=== PATIENT | female | born 1945 | race Caucasian/White ===

== ENCOUNTER → 2018-01-06 | Outpatient (CLI) | payer MEDICARE ==
[2018-01-06 19:07] LABS: ANION GAP 8 MEQ/L (8-16); BLOOD UREA NITROGEN 19 MG/DL (7-18); CALCIUM LEVEL 8.9 MG/DL (8.8-10.2); CARBON DIOXIDE LEVEL 26 MEQ/L (21-32); CHLORIDE LEVEL 104 MEQ/L (98-107); CREATININE FOR GFR 0.82 MG/DL (0.55-1.30); GLOMERULAR FILTRATION RATE > 60.0 (>39); GLUCOSE, FASTING 218 MG/DL (70-100); POTASSIUM SERUM 4.6 MEQ/L (3.5-5.1); SODIUM LEVEL 138 MEQ/L (136-145)
== END ==
LOC: M SMT 15:15
DX: R31.0 Gross hematuria (principal)
CPT/HCPCS: 80048

== ENCOUNTER → 2018-01-29 | Outpatient (REF) | payer MEDICARE ==
[2018-01-29 14:10] LABS: APPEARANCE, URINE CLEAR (CLEAR); BACTERIA, URINE AUTO NEGATIVE (NEGATIVE); BILIRUBIN, URINE AUTO NEGATIVE (NEGATIVE); BLOOD, URINE BLOOD NEGATIVE (NEGATIVE); COLOR, URINE STRAW (YELLOW); GLUCOSE, URINE (UA) AUTO 3+ mg/dL (NEGATIVE); KETONE, URINE AUTO NEGATIVE (NEGATIVE); LEUKOCYTE ESTERASE, URINE AUTO NEGATIVE (NEGATIVE); MUCUS, URINE SMALL (NEGATIVE); NITRITE, URINE AUTO NEGATIVE (NEGATIVE); PROTEIN, URINE AUTO NEGATIVE (NEGATIVE); RBC, URINE AUTO 1 /HPF (0-3); SQUAMOUS EPITHELIAL CELL UR AU 0 /HPF (0-6); UROBILINOGEN, URINE AUTO 0.2 mg/dL (0.0-2.0); WBC, URINE AUTO 1 /HPF (0-3)
== END ==
LOC: M SMT 13:22
DX: D49.4 Neoplasm of unspecified behavior of bladder (principal); R31.0 Gross hematuria
CPT/HCPCS: 81001

== ENCOUNTER 2018-02-27 08:48 | Day surgery (SDC) | payer MEDICARE ==
[~2018-02-27] VITALS: Ht 172.7 cm; Wt 88.0 kg
[~2018-02-27 08:48] MED LIST: COZA1TAB PO; IBUP-1022; JANU50TA25 PO; LIDOCAINE 2% INJ 100 MG/5 ML SDV (FOR ANES.) As Ordered ONE; MIDAZOLAM INJ 2 MG/2 ML VIAL (J2250) As Ordered ONE; MULT1TAB10 PO; ONDANSETRON 4MG/2ML VIAL (J2405) As Ordered ONE; PROPOFOL 200 MG/20 ML VIAL As Ordered ONE; TURM500T PO; dexameTHASONE 4 MG/ML 1ML VIAL (J1100) As Ordered ONE; fentaNYL 100 MCG/2 ML INJECTION (J3010) As Ordered ONE
[2018-02-27] MEDS ORDERED: LR 1,000 ML IV SCH (09:00)
[2018-02-27] MEDS ORDERED: mitoMYcin 40MG VIAL (J9280 PER 5MG) INTRAVESIC ONE (10:30)
[2018-02-27] MEDS ORDERED: CONRAY-60 60% 50ML VIAL (Q9961) As Ordered ONE (11:25)
[2018-02-27] MEDS ORDERED: ROCURONIUM BROMIDE 50 MG/5 ML VIAL As Ordered ONE (11:26)
[2018-02-27] MEDS ORDERED: HumaLOG INSULIN (NovoLOG) PER UNIT As Ordered ONE (11:38)
[2018-02-27] MEDS ORDERED: HumaLOG INSULIN (NovoLOG) PER UNIT SC ONE (12:00)
[2018-02-27] MEDS ORDERED: ePHEDrine SULFATE 25 MG/5 ML(5MG/ML) SYRINGE As Ordered ONE (12:27)
[2018-02-27] MEDS ORDERED: GLYCOPYRROLATE INJ 0.2 MG/ML 2 ML VIAL As Ordered ONE (12:30)
[2018-02-27] MEDS ORDERED: NEOSTIGMINE 10 MG/10 ML VIAL (J2710) As Ordered ONE (12:30)
[2018-02-27] MEDS ORDERED: HYDROmorphone HCL 2 MG/ML 1ML VIAL (J1170) As Ordered ONE (12:31)
[2018-02-27] MEDS ORDERED: ONDANSETRON 4MG/2ML VIAL (J2405) As Ordered ONE (13:06)
[2018-02-27] MEDS ORDERED: ACETAMINOPHEN TAB 650MG DOSE (2X325MG) PO PRN (13:15)
[2018-02-27] MEDS ORDERED: fentaNYL 100 MCG/2 ML INJECTION (J3010) IV PRN (13:15)
[2018-02-27] MEDS ORDERED: PERCOCET 5MG/325MG TAB PO PRN (13:15)
[2018-02-27] MEDS ORDERED: ONDANSETRON 4MG/2ML VIAL (J2405) IV PRN (13:15)
[2018-02-27] MEDS ORDERED: oxyBUTYnin 5 MG TAB PO PRN (14:45)
--- NOTE | 2018-02-27 14:55 | REP ---
RETROGRADE PYELOGRAM: FIVE VIEWS. HISTORY: Procedure. 13 seconds of fluoroscopy time was utilized. FINDINGS: A sequence of five last image hold fluoroscopically obtained spot radiographs of the abdomen document ureteral cannulation, contrast injection, and double pigtail stent placement. No laterality markers are visible. Electronically Signed by Shayan Brand MD 02/27/2018 04:17 P
[2018-02-27 16:10] VITALS: BP 172/77
--- NOTE | 2018-03-02 12:26 | RO ---
DATE OF PROCEDURE: 02/27/2018 PREPROCEDURE DIAGNOSIS: Bladder tumors. POSTPROCEDURE DIAGNOSIS: Bladder tumors. PROCEDURE: Cystoscopy, transurethral resection of bladder tumors (greater than 5 cm, right retrograde pyelogram and intraoperative interpretation of images, right ureteral stent placement, and examination under anesthesia. SURGEON: Manpreet Pillai MD AIR GRINDER: None. ANESTHESIA: General. OPERATIVE INDICATIONS: This is a 72-year-old female who was found to have a few papillary tumors near her right trigone on office cystoscopy. She is brought to the operating room today for the above listed procedure. DESCRIPTION OF PROCEDURE: The patient was brought to the operating room and general anesthesia was induced. Prophylactic antibiotics were infused. She was then placed in the dorsal lithotomy position and prepped and draped in the usual sterile fashion. A bimanual vaginal examination under anesthesia was then performed. The bladder was freely mobile. There were no palpable bladder masses. At this point a resectoscope was inserted through urethral meatus and advanced into the bladder using a digital opturator. The bladder was then thoroughly examined and the only abnormalities seen were three or four papillary tumors on the right wall over the right trigone. All of these tumors were then resected using a loop. I made sure to resect through the muscle layer so that pathology would have that available to analyze. All the bladder tumor specimens were then removed using the [employer] evacuator. I did have to resect over the right ureteral orifice. Because of this a decision was made to place a stent. At this point, an open-ended ureteral catheter was advanced into the ureteral orifice and retrograde pyelogram performed. It was negative for filling defects. There was no hydronephrosis. I then advanced a wire up the right collecting system and then removed the ureteral catheter. I then utilized the wire to advance a #6-Czech x 22-32 cm JJ ureteral stent up to the right collecting system. The wire was then removed and there were adequate coils of the stent in the right renal pelvis and in the bladder. At this point, after confirming all the tumors had been removed from the bladder, an #18-Czech Salas catheter was inserted into the bladder. The balloon was then filled with 10 mL of sterile water. The catheter was then connected to gravity drainage. This marked the conclusion of the procedure. The patient was then taken out of taken out of the dorsal lithotomy position, awakened from anesthesia and transported to the recovery room in stable condition. ESTIMATED BLOOD LOSS: 5 mL. COMPLICATIONS: None. SPECIMENS: Bladder tumors. PLAN: The patient will followup in the clinic next week for catheter removal. I will likely end up calling her to discuss her pathology results and future treatment. She will also need to have her stent removed in approximately 3 to 4 weeks. MARKD
== END 2018-02-27 16:15 | disposition home or self-care (01) ==
LOC: M SDC 08:48
PROVIDERS: ATTEND Urology
DX: C67.9 Malignant neoplasm of bladder, unspecified (principal); R31.0 Gross hematuria; E11.9 Type 2 diabetes mellitus without complications; D35.1 Benign neoplasm of parathyroid gland; K63.5 Polyp of colon; R80.9 Proteinuria, unspecified; M50.30 Other cervical disc degeneration, unspecified cervical region; F41.9 Anxiety disorder, unspecified; G47.33 Obstructive sleep apnea (adult) (pediatric); Z79.899 Other long term (current) drug therapy; Z98.51 Tubal ligation status; Z78.0 Asymptomatic menopausal state
CPT/HCPCS: 52240; 52332; 74420; 88307; C1769; C2617; J0690; J1100; J1170; J2250; J2405; J2710; J3010; Q9961

== ENCOUNTER → 2018-05-14 | Outpatient (REF) | payer MEDICARE ==
[~2018-05-14] MED LIST changes: -LIDOCAINE 2% INJ 100 MG/5 ML SDV (FOR ANES.) As Ordered ONE; -MIDAZOLAM INJ 2 MG/2 ML VIAL (J2250) As Ordered ONE; -ONDANSETRON 4MG/2ML VIAL (J2405) As Ordered ONE; -PROPOFOL 200 MG/20 ML VIAL As Ordered ONE; -dexameTHASONE 4 MG/ML 1ML VIAL (J1100) As Ordered ONE; -fentaNYL 100 MCG/2 ML INJECTION (J3010) As Ordered ONE
[2018-05-14 19:39] LABS: APPEARANCE, URINE CLEAR (CLEAR); BACTERIA, URINE AUTO NEGATIVE (NEGATIVE); BILIRUBIN, URINE AUTO NEGATIVE (NEGATIVE); BLOOD, URINE BLOOD NEGATIVE (NEGATIVE); COLOR, URINE YELLOW (YELLOW); GLUCOSE, URINE (UA) AUTO 3+ mg/dL (NEGATIVE); KETONE, URINE AUTO NEGATIVE (NEGATIVE); LEUKOCYTE ESTERASE, URINE AUTO 3+ (NEGATIVE); MUCUS, URINE SMALL (NEGATIVE); NITRITE, URINE AUTO NEGATIVE (NEGATIVE); PROTEIN, URINE AUTO NEGATIVE (NEGATIVE); RBC, URINE AUTO 1 /HPF (0-3); SPECIFIC GRAVITY URINE AUTO 1.008 (1.002-1.035); SQUAMOUS EPITHELIAL CELL UR AU 0 /HPF (0-6); UROBILINOGEN, URINE AUTO 0.2 mg/dL (0.0-2.0); WBC, URINE AUTO 104 /HPF (0-3)
== END ==
LOC: M SMT 17:23
PROVIDERS: ATTEND Nurse Practitioner Family
DX: C67.9 Malignant neoplasm of bladder, unspecified (principal)
CPT/HCPCS: 51701; 81001; 87088; 87186; G0463

== ENCOUNTER → 2018-08-10 | Outpatient (REF) | payer MEDICARE | LOC: M SMT 17:26 | PROVIDERS: ATTEND Urology | DX: C67.9 Malignant neoplasm of bladder, unspecified (principal) ==

== ENCOUNTER → 2018-11-04 | Outpatient (REF) | payer MEDICARE ==
[2018-11-04 18:51] LABS: APPEARANCE, URINE CLEAR (CLEAR); BACTERIA, URINE AUTO NEGATIVE (NEGATIVE); BILIRUBIN, URINE AUTO NEGATIVE (NEGATIVE); BLOOD, URINE BLOOD NEGATIVE (NEGATIVE); COLOR, URINE STRAW (YELLOW); GLUCOSE, URINE (UA) AUTO NEGATIVE (NEGATIVE); KETONE, URINE AUTO NEGATIVE (NEGATIVE); LEUKOCYTE ESTERASE, URINE AUTO NEGATIVE (NEGATIVE); MUCUS, URINE SMALL (NEGATIVE); NITRITE, URINE AUTO NEGATIVE (NEGATIVE); PROTEIN, URINE AUTO NEGATIVE (NEGATIVE); RBC, URINE AUTO 0 /HPF (0-3); SPECIFIC GRAVITY URINE AUTO 1.003 (1.002-1.035); SQUAMOUS EPITHELIAL CELL UR AU 0 /HPF (0-6); UROBILINOGEN, URINE AUTO 0.2 mg/dL (0.0-2.0); WBC, URINE AUTO 3 /HPF (0-3)
== END ==
LOC: M SMT 17:18
PROVIDERS: ATTEND Urology
DX: N39.0 Urinary tract infection, site not specified (principal)

== ENCOUNTER → 2018-12-28 | Outpatient (REF) | payer MEDICARE | LOC: M SMT 16:49 | PROVIDERS: ATTEND Urology | DX: C67.9 Malignant neoplasm of bladder, unspecified (principal) ==

== ENCOUNTER → 2019-03-29 | Outpatient (REF) | payer MEDICARE | LOC: M SMT 17:21 | PROVIDERS: ATTEND Urology | DX: C67.9 Malignant neoplasm of bladder, unspecified (principal) ==

== ENCOUNTER → 2019-07-05 | Outpatient (REF) | payer MEDICARE | LOC: M SMT 16:46 | PROVIDERS: ATTEND Urology | DX: C67.9 Malignant neoplasm of bladder, unspecified (principal) ==

== ENCOUNTER → 2019-10-04 | Outpatient (REF) | payer MEDICARE | LOC: M SMT 06:59 | PROVIDERS: ATTEND Urology | DX: C67.9 Malignant neoplasm of bladder, unspecified (principal) ==

== ENCOUNTER → 2020-01-17 | Outpatient (REF) | payer MEDICARE | LOC: M SMT 13:19 | PROVIDERS: ATTEND Urology | DX: C67.9 Malignant neoplasm of bladder, unspecified (principal) ==

== ENCOUNTER → 2020-04-17 | Outpatient (REF) | payer MEDICARE | LOC: M SMT 19:06 | PROVIDERS: ATTEND Urology | DX: C67.9 Malignant neoplasm of bladder, unspecified (principal) ==

== ENCOUNTER → 2020-07-17 | Outpatient (REF) | payer MEDICARE | LOC: M SMT 17:01 | PROVIDERS: ATTEND Urology | DX: C67.9 Malignant neoplasm of bladder, unspecified (principal) ==

== ENCOUNTER → 2020-10-30 | Outpatient (REF) | payer MEDICARE | LOC: M SMT 13:41 | PROVIDERS: ATTEND Urology | DX: C67.9 Malignant neoplasm of bladder, unspecified (principal) ==

== ENCOUNTER → 2021-01-30 | Outpatient (REF) | payer MEDICARE | LOC: M SMT 13:26 | PROVIDERS: ATTEND Urology | DX: C67.9 Malignant neoplasm of bladder, unspecified (principal) | CPT/HCPCS: 52000; 88108; G0463 ==

== ENCOUNTER → 2021-08-07 | Outpatient (REF) | payer MEDICARE, OTHER | LOC: M SMT 13:02 | PROVIDERS: ATTEND Urology | DX: C67.9 Malignant neoplasm of bladder, unspecified (principal) ==

== ENCOUNTER → 2022-02-11 | Outpatient (REF) | payer MEDICARE, OTHER | LOC: M SMT 13:06 | PROVIDERS: ATTEND Urology | DX: C67.9 Malignant neoplasm of bladder, unspecified (principal) ==

== ENCOUNTER → 2022-08-12 | Outpatient (REF) | payer OTHER, MEDICARE | LOC: M SMT 12:59 | PROVIDERS: ATTEND Urology | DX: C67.9 Malignant neoplasm of bladder, unspecified (principal) ==

== ENCOUNTER → 2023-03-10 | Outpatient (REF) | payer OTHER, MEDICARE ==
[~2023-03-10] MED LIST changes: -COZA1TAB PO; +LOSA-527 PO
== END ==
LOC: M SMT 09:50
PROVIDERS: ATTEND Urology
DX: C67.9 Malignant neoplasm of bladder, unspecified (principal)

== ENCOUNTER 2023-07-23 03:51 | Inpatient (IN) | payer OTHER, MEDICARE ==
[~2023-07-23] VITALS: Ht 172.7 cm; Wt 85.0 kg
[2023-07-24] VITALS (27 sets, daily range): BP systolic 83–128; BP diastolic 46–67; TEMP 97.9–98.7; O2SAT 94–99
[2023-07-24] MEDS ORDERED: VENTAER INH (09:35)
[2023-07-24] MEDS ORDERED: FLOM0.4C39 PO (09:35)
[2023-07-24] MEDS ORDERED: RA T500C2 PO (09:35)
[2023-07-24] MEDS ORDERED: PERCOCET PO (09:35)
[2023-07-24] MEDS ORDERED: MULTTAB61 PO (09:35)
[2023-07-24] MEDS ORDERED: ARIC1TAB PO (09:35)
[2023-07-24] MEDS ORDERED: HOME MED LIST COMPLETE! XX SCH (09:35)
[2023-07-24] MEDS ORDERED: VENL75CA47 PO (09:35)
[2023-07-24] MEDS ORDERED: NAPR220C23 PO (09:35)
[2023-07-24] MEDS ORDERED: SEMA1PEN2 SQ (09:35)
[2023-07-24] MEDS ORDERED: GLUCAGON INJ 1MG VIAL SC PRN (09:45)
[2023-07-24] MEDS ORDERED: GLUCOSE 4 GM CHEW PO PRN (09:45)
[2023-07-24] MEDS ORDERED: DEXTROSE 50% 50ML SYRINGE IV PRN (09:45)
[2023-07-24] MEDS: PANTOPRAZOLE 40MG VIAL IV SCH (09:49)
[2023-07-24] MEDS: LR 1,000 ML IV SCH ×2 (09:49→14:01)
[2023-07-24] MEDS: NOREPINEPHRINE 4MG IN D5 250ML 4 MG in IV 1 EA IV SCH (09:55)
[2023-07-24 10:10] LABS: ALBUMIN 2.5 G/DL (3.2-5.2); BILIRUBIN,TOTAL 0.4 MG/DL (0.3-1.2); CREATININE FOR GFR 1.19 MG/DL (0.55-1.30); GLOMERULAR FILTRATION RATE 46.9 (>39); HEMATOCRIT 30.1 % (36.0-47.0); HEMOGLOBIN 10.3 g/dl (12.0-15.5); MAGNESIUM LEVEL 1.9 MG/DL (1.8-2.4); MEAN CORPUSCULAR HEMOGLOBIN 32.9 pg (27.0-33.0); MEAN CORPUSCULAR HGB CONC 34.2 g/dl (32.0-36.5); MEAN CORPUSCULAR VOLUME 96.2 fl (80.0-96.0); PHOSPHORUS LEVEL 3.8 MG/DL (2.4-5.1); PLATELET COUNT, AUTOMATED 148 10^3/uL (150-450); POTASSIUM SERUM 3.7 MMOL/L (3.5-5.1); RED BLOOD COUNT 3.13 10^6/uL (4.00-5.40); WHITE BLOOD COUNT 19.1 10^3/uL (4.0-10.0)
[2023-07-24 10:35] LABS: APPEARANCE, URINE HAZY (CLEAR); BACTERIA, URINE AUTO 1+ (NEGATIVE); BILIRUBIN, URINE AUTO NEGATIVE (NEGATIVE); BLOOD, URINE BLOOD 1+ (NEGATIVE); COLOR, URINE YELLOW (YELLOW); GLUCOSE, URINE (UA) AUTO NEGATIVE (NEGATIVE); KETONE, URINE AUTO NEGATIVE (NEGATIVE); LEUKOCYTE ESTERASE, URINE AUTO 1+ (NEGATIVE); MUCUS, URINE SMALL (NEGATIVE); NITRITE, URINE AUTO NEGATIVE (NEGATIVE); PROTEIN, URINE AUTO 1+ mg/dL (NEGATIVE); RBC, URINE AUTO 7 /HPF (0-3); SPECIFIC GRAVITY URINE AUTO 1.027 (1.002-1.035); SQUAMOUS EPITHELIAL CELL UR AU 0 /HPF (0-6); UROBILINOGEN, URINE AUTO 0.2 mg/dL (0.0-2.0); WBC, URINE AUTO 51 /HPF (0-3)
[2023-07-24 10:36] LABS: LYMPHOCYTES 5 % (16-44); METAMYELOCYTES 9 % (0-0); MONOCYTES 2 % (0-5); NEUTROPHILS 67 % (28-66)
[2023-07-24 10:37] LABS: PLATELET ESTIMATE NORMAL (NORMAL)
[2023-07-24] MEDS: cefTRIAXone SOD 2 GM in D5W MINI-BAG PLUS 50 ML IV SCH (11:12)
[2023-07-24] MEDS: LIDOCAINE 2% JELLY 6ML SYRINGE As Ordered ONE (12:33)
[2023-07-24] MEDS: ISOVUE-300 61% 100ML VIAL As Ordered ONE (12:40)
[2023-07-24] MEDS ORDERED: oxyCODONE 5MG TAB PO PRN (12:55)
[2023-07-24] MEDS ORDERED: fentaNYL 100 MCG/2 ML INJECTION IV PRN (12:55)
[2023-07-24] MEDS ORDERED: HYDROMORPHONE HCL 0.5 MG/ 0.5 ML SYRINGE IV PRN (12:55)
[2023-07-24] MEDS: ONDANSETRON 4MG 2ML VIAL IV PRN ×2 (13:30→19:47)
[2023-07-24] MEDS ORDERED: ALBUTEROL 90 MCG/ACT 8GM HFA INHALER INH PRN (14:05)
[2023-07-24] MEDS ORDERED: PERCOCET 5MG/325MG TAB PO PRN (14:05)
[2023-07-24] MEDS: INSULIN LISPRO (NovoLOG) PER UNIT SC SCH (14:09)
[2023-07-24] MEDS: DONEPEZIL 5 MG TAB PO SCH (20:48)
[2023-07-24] MEDS: HEPARIN SOD (PORCINE) 5000UNITS/ML 1ML VIAL/SYRINGE SC SCH (21:41)
[2023-07-25] VITALS (16 sets, daily range): BP systolic 111–161; BP diastolic 55–80; TEMP 97.3–98.2; O2SAT 92–98
[2023-07-25] MEDS: ACETAMINOPHEN TAB 650MG DOSE (2X325MG) PO ONE (04:52)
[2023-07-25 04:58] LABS: HEMOGLOBIN 9.6 g/dl (12.0-15.5); MEAN CORPUSCULAR HEMOGLOBIN 32.4 pg (27.0-33.0); MEAN CORPUSCULAR HGB CONC 33.1 g/dl (32.0-36.5); PLATELET COUNT, AUTOMATED 128 10^3/uL (150-450); RED BLOOD COUNT 2.96 10^6/uL (4.00-5.40); WHITE BLOOD COUNT 14.6 10^3/uL (4.0-10.0)
[2023-07-25 05:16] LABS: ALBUMIN 2.1 G/DL (3.2-5.2); BILIRUBIN,TOTAL 0.3 MG/DL (0.3-1.2); CALCIUM LEVEL 7.1 MG/DL (8.3-10.6); CREATININE FOR GFR 0.97 MG/DL (0.55-1.30); GLOMERULAR FILTRATION RATE 59.4 (>39); MAGNESIUM LEVEL 1.9 MG/DL (1.8-2.4); PHOSPHORUS LEVEL 2.6 MG/DL (2.4-5.1); POTASSIUM SERUM 3.8 MMOL/L (3.5-5.1); TOTAL PROTEIN 4.7 G/DL (5.7-8.2)
[2023-07-25 05:30] LABS: EOSINOPHILS 1 % (0-3); LYMPHOCYTES 14 % (16-44); MONOCYTES 2 % (0-5); MYELOCYTES 1 % (0-0); NEUTROPHILS 76 % (28-66)
[2023-07-25 05:31] LABS: PLATELET ESTIMATE DECREASED (NORMAL)
[2023-07-25] MEDS ORDERED: DEXTROSE 50% 50ML SYRINGE IV PRN (07:50)
[2023-07-25] MEDS ORDERED: GLUCAGON INJ 1MG VIAL SC PRN (07:50)
[2023-07-25] MEDS ORDERED: GLUCOSE 4 GM CHEW PO PRN (07:50)
[2023-07-25] MEDS: VENLAFAXINE **XR** 75MG CAPSULE PO SCH (08:26)
[2023-07-25] MEDS: INSULIN LISPRO (NovoLOG) PER UNIT SC SCH ×2 (12:00→20:47)
[2023-07-25 14:30] LABS: PERCENT SATURATION 3.5 % (13.2-45.0)
[2023-07-25 14:33] LABS: FERRITIN 217.3 NG/ML (7.3-270.7); FOLATE 20.4 NG/ML (>5.4)
[2023-07-25] MEDS: MEROPENEM INJ 1 GM in IV 1 EA IV SCH (14:37)
[2023-07-26 03:59] VITALS: BP 122/58; TEMP 97.3; O2SAT 91
[2023-07-26 07:47] VITALS: BP 143/67; TEMP 98; O2SAT 96
[2023-07-26] MEDS: SODIUM CHLORIDE 0.9% INJ 10 ML SYR IV PRN (08:30)
[2023-07-26 08:53] LABS: BASO % 0.3 % (0.0-1.0); EOS # 0.1 10^3/uL (0.0-0.5); EOS % 1.5 % (0.0-3.0); HEMATOCRIT 29.4 % (36.0-47.0); HEMOGLOBIN 9.9 g/dl (12.0-15.5); LYMPH # 1.3 10^3/uL (1.5-5.0); LYMPH % 14.9 % (24.0-44.0); MEAN CORPUSCULAR HEMOGLOBIN 32.5 pg (27.0-33.0); MEAN CORPUSCULAR HGB CONC 33.7 g/dl (32.0-36.5); MEAN CORPUSCULAR VOLUME 96.4 fl (80.0-96.0); MONO # 0.4 10^3/uL (0.0-0.8); MONO % 4.7 % (2.0-8.0); NEUTROPHILS % 78.4 % (36.0-66.0); PLATELET COUNT, AUTOMATED 152 10^3/uL (150-450); RED BLOOD COUNT 3.05 10^6/uL (4.00-5.40); WHITE BLOOD COUNT 8.9 10^3/uL (4.0-10.0)
[2023-07-26 09:13] LABS: BLOOD UREA NITROGEN 10 MG/DL (9-23); CALCIUM LEVEL 7.4 MG/DL (8.3-10.6); CARBON DIOXIDE LEVEL 24 MMOL/L (20-31); CHLORIDE LEVEL 110 MMOL/L (98-107); CREATININE FOR GFR 0.89 MG/DL (0.55-1.30); GLOMERULAR FILTRATION RATE > 60.0 (>39); GLUCOSE, FASTING 214 MG/DL (74-106); MAGNESIUM LEVEL 1.6 MG/DL (1.8-2.4); POTASSIUM SERUM 3.9 MMOL/L (3.5-5.1); SODIUM LEVEL 141 MMOL/L (136-145)
[2023-07-26 12:29] VITALS: BP 146/62; TEMP 97.8; O2SAT 98
[2023-07-26] MEDS: SODIUM CHLORIDE 0.9% INJ 10 ML SYR IV SCH (15:26)
[2023-07-26 16:05] VITALS: BP 150/65; TEMP 97.7; O2SAT 95
[2023-07-26] MEDS: MAG SULF 1GM/100ML (MAG RUN) 1 GM in IV 1 EA IV SCH (16:36)
[2023-07-26] MEDS: LACTOBACILLUS ACIDOPHILUS CAP (BACID) PO SCH (17:55)
[2023-07-26 19:35] VITALS: BP 143/67; TEMP 98.4; O2SAT 96
[2023-07-26 23:36] VITALS: BP 120/58; TEMP 97.6; O2SAT 92
[2023-07-27 04:10] VITALS: BP 126/60; TEMP 98.7; O2SAT 93
[2023-07-27 07:02] LABS: BASO % 0.5 % (0.0-1.0); EOS # 0.1 10^3/uL (0.0-0.5); EOS % 2.1 % (0.0-3.0); HEMATOCRIT 29.1 % (36.0-47.0); HEMOGLOBIN 9.9 g/dl (12.0-15.5); LYMPH # 1.6 10^3/uL (1.5-5.0); LYMPH % 28.4 % (24.0-44.0); MEAN CORPUSCULAR HEMOGLOBIN 32.7 pg (27.0-33.0); MONO # 0.6 10^3/uL (0.0-0.8); MONO % 10.7 % (2.0-8.0); NEUTROPHILS # 3.3 10^3/uL (1.5-8.5); NEUTROPHILS % 57.1 % (36.0-66.0); PLATELET COUNT, AUTOMATED 160 10^3/uL (150-450); RED BLOOD COUNT 3.03 10^6/uL (4.00-5.40); WHITE BLOOD COUNT 5.7 10^3/uL (4.0-10.0)
[2023-07-27 07:26] LABS: BLOOD UREA NITROGEN 9 MG/DL (9-23); CALCIUM LEVEL 7.8 MG/DL (8.3-10.6); CARBON DIOXIDE LEVEL 27 MMOL/L (20-31); CHLORIDE LEVEL 107 MMOL/L (98-107); CREATININE FOR GFR 0.84 MG/DL (0.55-1.30); GLOMERULAR FILTRATION RATE > 60.0 (>39); GLUCOSE, FASTING 149 MG/DL (74-106); MAGNESIUM LEVEL 1.8 MG/DL (1.8-2.4); POTASSIUM SERUM 3.7 MMOL/L (3.5-5.1); SODIUM LEVEL 139 MMOL/L (136-145)
[2023-07-27 08:33] VITALS: BP 138/73; TEMP 97.8; O2SAT 97
[2023-07-27] MEDS: NEOSPORIN OINT 0.9 GM PKT TOP ONE (09:44)
[2023-07-27] MEDS ORDERED: CVS1CAP2 PO (10:48)
[2023-07-27] MEDS ORDERED: BACT800T5 PO (10:48)
[2023-07-27] MEDS ORDERED: FERR325T3 PO (10:54)
[2023-08-01] MEDS ORDERED: OZEMPIC 1 MG SC SCH (09:00)
== END 2023-07-27 13:25 | disposition home or self-care (01) | DRG 710 ==
LOC: M ICU 07-24 03:48 → UNDOADMIN 07-24 03:48 → EEVIPCON 07-24 08:43 → M ICU 07-24 08:43 → M PCU 07-25 17:37
PROVIDERS: ADMIT Internal Medicine; ATTEND Student in an Organized Health Care Education/Training Program
PROC: 0TC78ZZ Extirpation of Matter from Left Ureter, Via Natural or Artificial Opening Endoscopic (ICD-10-PCS; principal; 2023-07-24 12:00)
DX: A41.9 Sepsis, unspecified organism (principal); R65.21 Severe sepsis with septic shock; D69.6 Thrombocytopenia, unspecified; E11.9 Type 2 diabetes mellitus without complications; N10 Acute pyelonephritis; B96.20 Unspecified Escherichia coli [E. coli] as the cause of diseases classified elsewhere; N39.0 Urinary tract infection, site not specified; E83.42 Hypomagnesemia; D50.9 Iron deficiency anemia, unspecified; N20.1 Calculus of ureter; Z85.51 Personal history of malignant neoplasm of bladder; F32.A Depression, unspecified; Z79.899 Other long term (current) drug therapy

== ENCOUNTER → 2024-03-15 | Outpatient (REF) | payer OTHER, MEDICARE ==
[~2024-03-15] MED LIST changes: +ARIC1TAB PO; +BACT800T5 PO; +CVS1CAP2 PO; +FERR325T3 PO; +FLOM0.4C39 PO; +MULTTAB61 PO; +NAPR220C23 PO; +PERCOCET PO; +RA T500C2 PO; +SEMA1PEN2 SQ; +VENL75CA47 PO; +VENTAER INH
== END ==
LOC: M SMT 13:13
PROVIDERS: ATTEND Urology
DX: C67.9 Malignant neoplasm of bladder, unspecified (principal)